=== PATIENT | female | born 1965 | race Caucasian/White ===

== ENCOUNTER 2017-12-19 10:01 | Emergency (ER) | payer OTHER ==
[2017-12-19 11:24] VITALS: BP 119/72
--- NOTE | 2017-12-19 11:25 | UC ---
Respiratory Complaint HPI - HPI Summary HPI Summary: 52 yo female presents with fatigue and productive cough since yesterday. This morning developed a headache. She took 600mg ibuprofen with no relief. She tells me that in the past she had issues with her sugar and developed PNA and was hospitalized - she is concerned she may have PNA again. She does not check her sugars daily, but says her last A1C was 2 months ago and was around 6.0. Currently denies fever, chills, sore throat, SOB, chest pain, abdominal pain, n/ v, dizziness. - History of Current Complaint Chief Complaint: UCRespiratory Stated Complaint: POSS PNEUMONIA Time Seen by Provider: 12/19/17 11:24 Hx Obtained From: Patient Hx Last Menstrual Period: 2 weeks ago Onset/Duration: Gradual Onset Severity Initially: Moderate Severity Currently: Moderate Pain Intensity: 8 Pain Scale Used: 0-10 Numeric Character: Cough: Productive - Allergies/Home Medications Allergies/Adverse Reactions: Allergies Allergy/AdvReac Type Severity Reaction Status Date / Time codeine Allergy See Comment Verified 12/19/17 11:13 promethazine [From Phenergan] Allergy See Comment Verified 12/19/17 11:13 Sulfa (Sulfonamide Allergy Headache Verified 12/19/17 11:13 Antibiotics) Home Medications: Home Medications Cyanocobalamin TAB* [Vitamin B12 TAB*] 1,000 mcg PO DAILY 12/19/17 [History Confirmed 12/19/17] Docusate CAP* [Colace Cap*] 100 mg PO DAILY 12/19/17 [History Confirmed 12/19/17 ] Ertugliflozin/Sitagliptin [Steglujan 15-100 mg Tablet] 1 each PO DAILY 12/19/17 [History Confirmed 12/19/17] Iron 18 mg PO BID 12/19/17 [History Confirmed 12/19/17] Lisinopril TAB* [Prinivil TAB*] 10 mg PO DAILY 12/19/17 [History Confirmed 12/19] Multivitamin [Multivitamins] 1 cap PO DAILY 12/19/17 [History Confirmed 12/19/17 ] Omeprazole CAP* [Prilosec CAP* 20 MG] 20 mg PO DAILY 12/19/17 [History Confirmed 12/19/17] PARoxetine HCL TAB* [Paxil TAB*] 20 mg PO DAILY 12/19/17 [History Confirmed ] Simvastatin TAB(NF) [Zocor(NF)] 20 mg PO DAILY 12/19/17 [History Confirmed 12/19] metFORMIN* [Glucophage 1000 MG TAB *] 1,000 mg PO BID 12/19/17 [History Confirmed 12/19/17] PMH/Surg Hx/FS Hx/Imm Hx Endocrine History: Diabetes, Dyslipidemia Cardiovascular History: Hypertension Psychological History: Anxiety, Depression - Surgical History Surgical History: Yes Surgery Procedure, Year, and Place: [facility] - Family History Known Family History: Positive: Diabetes - Social History Occupation: Employed Full-time Lives: With Family Alcohol Use: Rare Substance Use Type: None Smoking Status (MU): Current Some Day Smoker Type: Cigarettes Amount Used/How Often: rarely Review of Systems Constitutional: Fatigue Skin: Negative Eyes: Negative ENT: Negative Respiratory: Cough Cardiovascular: Negative Gastrointestinal: Negative Genitourinary: Negative Neurovascular: Negative Musculoskeletal: Negative Neurological: Headache Psychological: Negative All Other Systems Reviewed And Are Negative: Yes Physical Exam - Summary Physical Exam Summary: GENERAL: NAD. WDWN. No pain distress. SKIN: No rashes, sores, lesions, or open wounds. HEENT: Head: AT/NC Eyes: EOM intact. Conjunctiva clear without inflammation or discharge. Ears: Hearing grossly normal. TMs intact, no bulging, erythema, or edema. Nose: Nasal mucosa pink and moist. NTTP maxillary and frontal sinus. Throat: Posterior oropharynx without exudates, erythema, or tonsillar enlargement. Uvula midline. NECK: Supple. Nontender. No lymphadenopathy. CHEST: CTAB. No r/r/w. No accessory muscle use. Breathing comfortably and in no distress. CV: RRR. Without m/r/g. Pulses intact. Cap refill <2seconds NEURO: Alert. PSYCH: Age appropriate behavior. Triage Information Reviewed: Yes Vital Signs: Initial Vital Signs Temp 97.1 F 12/19/17 11:17 Pulse 84 12/19/17 11:17 Resp 18 12/19/17 11:17 BP 119/72 12/19/17 11:17 Pulse Ox 99 12/19/17 11:17 Laboratory Tests 12/19/17 11:32 POC Glucose (mg/dL) 138 H Vital Signs Reviewed: Yes UC Diagnostic Evaluation - Laboratory O2 Sat by Pulse Oximetry: 99 Respiratory Course/Dx - Course Course Of Treatment: CXR: IMPRESSION: 1. NO EVIDENCE FOR ACUTE FINDING. 2. SMALL BILATERAL PULMONARY NODULES FAVORING GRANULOMAS ALTHOUGH NONSPECIFIC. THESE CAN. BE FURTHER EVALUATED WITH A NONEMERGENT CT OF THE CHEST WITHOUT CONTRAST OR A FOLLOW-UP. CHEST X-RAY IN 6 MONTHS TIME TO DEMONSTRATE STABILITY. Glucose appears to be well controlled. Suspect viral illness. Advised to continue with ibuprofen, rest, and drink plenty of fluids. Discussed at length with pt the above CXR findings. She became tearful and worried that these may be cancerous. I encouraged her to call her PCP's office who may have past CXRs on file that can correlate these nodules as she goes to [facility] for most exams. - Differential Dx/Diagnosis Provider Diagnoses: Headache. Cough. DM2 Discharge - Sign-Out/Discharge Documenting (check all that apply): Patient Departure All imaging exams completed and their final reports reviewed: Yes - Discharge Plan Condition: Stable Disposition: HOME Patient Education Materials: Tension Headache (ED), Viral Syndrome (ED) Referrals: Skylar Boyce NP [Primary Care Provider] - Additional Instructions: If you develop a fever, shortness of breath, chest pain, new or worsening symptoms - please call your PCP or go to the ED. 1) Your fingerstick glucose was 138 and reflects great diabetes control. 2) Your CXR results were provided to you. Please follow up with your PCP for further imaging and monitoring in 6 months. - Billing Disposition and Condition Condition: STABLE Disposition: Home
--- NOTE | 2017-12-19 12:26 | RAD ---
INDICATION: Cough. COMPARISON: There are no relevant prior studies available for comparison. TECHNIQUE: Dual-energy PA and lateral views of the chest were obtained. FINDINGS: The heart is within normal limits in size. Mediastinal and hilar contours appear within normal limits. There are several small pulmonary nodules present within both lungs which appear mildly dense likely containing calcium favoring granulomas. The lungs are otherwise clear. No pleural effusion is seen. IMPRESSION: 1. NO EVIDENCE FOR ACUTE FINDING. 2. SMALL BILATERAL PULMONARY NODULES FAVORING GRANULOMAS ALTHOUGH NONSPECIFIC. THESE CAN BE FURTHER EVALUATED WITH A NONEMERGENT CT OF THE CHEST WITHOUT CONTRAST OR A FOLLOW-UP CHEST X-RAY IN 6 MONTHS TIME TO DEMONSTRATE STABILITY.
== END 2017-12-19 12:54 | disposition home or self-care (01) ==
LOC: UCCORT 10:01
DX: R05 Cough (principal); R51 Headache; R91.8 Other nonspecific abnormal finding of lung field; E11.9 Type 2 diabetes mellitus without complications; I10 Essential (primary) hypertension; F41.8 Other specified anxiety disorders; E78.5 Hyperlipidemia, unspecified; F17.210 Nicotine dependence, cigarettes, uncomplicated; Z79.899 Other long term (current) drug therapy; Z79.84 Long term (current) use of oral hypoglycemic drugs; Z87.01 Personal history of pneumonia (recurrent); Z88.8 Allergy status to other drugs, medicaments and biological substances; Z88.2 Allergy status to sulfonamides; Z88.5 Allergy status to narcotic agent
CPT/HCPCS: 71046; 99212; G0463

== ENCOUNTER 2017-12-23 14:36 | Emergency (ER) | payer OTHER ==
[2017-12-23 15:52] VITALS: BP 126/73
[2017-12-23] MEDS ORDERED: Amoxicillin PO (*) 500 MG CAP PO ONE (17:11)
--- NOTE | 2017-12-23 17:12 | UC ---
UC General HPI - HPI Summary HPI Summary: PT IS C/O A 3-4 DAYS HX OF A SORE TO HER R LOWER GUM. HX SAME THAT NEEDED AN ANTIBIOTIC. HX DM AND NOTES A SLIGHT INCREASE IN BS WITH THIS. - History of Current Complaint Chief Complaint: UCDentalProblem Stated Complaint: DENTAL COMPLAINT Time Seen by Provider: 12/23/17 17:04 Hx Obtained From: Patient Hx Last Menstrual Period: 2 weeks ago Onset/Duration: Gradual Onset Timing: Constant Pain Intensity: 4 Associated Signs & Symptoms: Negative: Fever - Allergy/Home Medications Allergies/Adverse Reactions: Allergies Allergy/AdvReac Type Severity Reaction Status Date / Time codeine Allergy See Comment Verified 12/23/17 15:49 promethazine [From Phenergan] Allergy See Comment Verified 12/23/17 15:49 Sulfa (Sulfonamide Allergy Headache Verified 12/23/17 15:49 Antibiotics) PMH/Surg Hx/FS Hx/Imm Hx Endocrine History: Diabetes - Surgical History Surgical History: Yes Surgery Procedure, Year, and Place: [facility]. [facility] - Family History Known Family History: Positive: Diabetes - Social History Occupation: Employed Full-time Alcohol Use: Rare Substance Use Type: None Smoking Status (MU): Current Some Day Smoker Type: Cigarettes Amount Used/How Often: rarely - Immunization History Vaccination Up to Date: Yes Review of Systems Constitutional: Negative Skin: Negative Eyes: Negative ENT: Other - PAIN/SWELLING r LOWER GUM Respiratory: Negative Cardiovascular: Negative Gastrointestinal: Negative Genitourinary: Negative Motor: Negative Neurovascular: Negative Musculoskeletal: Negative Neurological: Negative Psychological: Negative Is Patient Immunocompromised?: No All Other Systems Reviewed And Are Negative: Yes Physical Exam Triage Information Reviewed: Yes Appearance: Well-Appearing Vital Signs: Initial Vital Signs Temp 98 F 12/23/17 15:43 Pulse 85 12/23/17 15:43 Resp 15 12/23/17 15:43 BP 126/73 12/23/17 15:43 Pulse Ox 100 12/23/17 15:43 Vital Signs Reviewed: Yes Eyes: Positive: Conjunctiva Clear ENT: Positive: Pharynx normal, TMs normal. Negative: Nasal congestion, Nasal drainage Dental: Positive: Other: - SWELLING AND TENDERNESS R LOWER GUM BELOW THE CUSP BUT NOT FLUCTUANT Neck: Positive: Supple, Nontender, No Lymphadenopathy Respiratory: Positive: Lungs clear, Normal breath sounds Cardiovascular: Positive: RRR, No Murmur Abdomen Description: Positive: Nontender, No Organomegaly, Soft Bowel Sounds: Positive: Present Musculoskeletal: Positive: ROM Intact Neurological: Positive: Alert Psychological: Positive: Age Appropriate Behavior Skin Exam: Normal Course/Dx - Differential Dx - Multi-Symptom Provider Diagnoses: INFECTION R LOWER GUM Discharge - Sign-Out/Discharge Documenting (check all that apply): Patient Departure All imaging exams completed and their final reports reviewed: No Studies - Discharge Plan Condition: Stable Disposition: HOME Prescriptions: Amoxicillin PO (*) [Amoxicillin 875 MG (*)] 875 mg PO BID 10 Days #20 tab Patient Education Materials: Dental Abscess (ED) Referrals: Skylar Boyce NP [Primary Care Provider] - If Needed Additional Instructions: FOLLOW UP DR MCDONALD, YOUR DENTIST SOON POSSIBLE. DIAGNOSIS: INFECTION R LOWER GUM - Billing Disposition and Condition Condition: STABLE Disposition: Home
== END 2017-12-23 17:17 | disposition home or self-care (01) ==
LOC: UCCORT 14:36
DX: K05.10 Chronic gingivitis, plaque induced (principal); E11.9 Type 2 diabetes mellitus without complications; F17.200 Nicotine dependence, unspecified, uncomplicated; Z88.5 Allergy status to narcotic agent; Z88.8 Allergy status to other drugs, medicaments and biological substances; Z88.2 Allergy status to sulfonamides
CPT/HCPCS: 99212; A9270-GY; G0463

== ENCOUNTER 2018-02-26 15:20 | Emergency (ER) | payer OTHER ==
[2018-02-26 15:45] VITALS: BP 119/67
--- NOTE | 2018-02-26 16:02 | UC ---
UC General HPI - HPI Summary HPI Summary: sore throat and body aches since this am. No fever. - History of Current Complaint Chief Complaint: UCGeneralIllness Stated Complaint: ST,ACHY Hx Obtained From: Patient Hx Last Menstrual Period: 02/01/18 Onset/Duration: Gradual Onset Timing: Constant Pain Intensity: 8 - Allergy/Home Medications Allergies/Adverse Reactions: Allergies Allergy/AdvReac Type Severity Reaction Status Date / Time codeine Allergy See Comment Verified 02/26/18 15:41 promethazine [From Phenergan] Allergy See Comment Verified 02/26/18 15:41 Sulfa (Sulfonamide Allergy Headache Verified 02/26/18 15:41 Antibiotics) Home Medications: Home Medications Ibuprofen TAB* [Motrin TAB* 600 MG] 600 mg PO Q6H PRN 02/26/18 [History Confirmed 02/26/18] PMH/Surg Hx/FS Hx/Imm Hx Endocrine History: Diabetes Cardiovascular History: Hypertension - Surgical History Surgical History: Yes Surgery Procedure, Year, and Place: [facility]. [facility] - Family History Known Family History: Positive: Diabetes - Social History Occupation: Employed Full-time Alcohol Use: Rare Substance Use Type: None Smoking Status (MU): Never Smoked Tobacco Type: Cigarettes Amount Used/How Often: rarely - Immunization History Vaccination Up to Date: Yes Review of Systems All Other Systems Reviewed And Are Negative: Yes Constitutional: Positive: Negative Skin: Positive: Negative Eyes: Positive: Negative ENT: Positive: Sore Throat Respiratory: Positive: Negative Cardiovascular: Positive: Negative Gastrointestinal: Positive: Negative Genitourinary: Positive: Negative Motor: Positive: Negative Neurovascular: Positive: Negative Musculoskeletal: Positive: Myalgia Neurological: Positive: Negative Psychological: Positive: Negative Physical Exam Triage Information Reviewed: Yes Appearance: Well-Appearing Vital Signs: Initial Vital Signs Temp 98.8 F 02/26/18 15:40 Pulse 101 02/26/18 15:40 Resp 16 02/26/18 15:40 BP 119/67 02/26/18 15:40 Pulse Ox 99 02/26/18 15:40 Vital Signs Reviewed: Yes Eyes: Positive: Conjunctiva Clear ENT: Positive: Pharyngeal erythema, TMs normal, Uvula midline. Negative: Nasal congestion, Nasal drainage, Trismus, Muffled voice, Hoarse voice Neck: Positive: Supple, Tenderness @ - peritonsilar nodes with mild enlargement. Respiratory: Positive: Lungs clear, Normal breath sounds Cardiovascular: Positive: RRR, No Murmur Abdomen Description: Positive: Nontender, No Organomegaly, Soft Bowel Sounds: Positive: Present Musculoskeletal: Positive: ROM Intact Neurological: Positive: Alert Psychological: Positive: Age Appropriate Behavior Skin Exam: Normal Diagnostics - Laboratory Diagnostic Studies Completed/Ordered: rapid strep=positive Course/Dx - Diagnoses Provider Diagnosis: Strep throat Discharge - Sign-Out/Discharge Documenting (check all that apply): Patient Departure All imaging exams completed and their final reports reviewed: No Studies - Discharge Plan Condition: Stable Disposition: HOME Prescriptions: Amoxicillin PO (*) [Amoxicillin 500 MG CAP*] 500 mg PO Q12H 10 Days #20 cap Fluconazole 150 MG TAB* [Diflucan 150 MG TAB*] 150 mg PO UC ONCE #1 tablet Patient Education Materials: Strep Throat (ED) Referrals: Skylar Boyce NP [Primary Care Provider] - Additional Instructions: FOLLOW UP WITH PRIMARY CARE IF NOT BETTER IN 7 DAYS OR SOONER IF WORSE. - Billing Disposition and Condition Condition: STABLE Disposition: Home
== END 2018-02-26 16:07 | disposition home or self-care (01) ==
LOC: UCCORT 15:20
DX: J02.0 Streptococcal pharyngitis (principal); B95.0 Streptococcus, group A, as the cause of diseases classified elsewhere; Z88.5 Allergy status to narcotic agent; Z88.2 Allergy status to sulfonamides; Z88.8 Allergy status to other drugs, medicaments and biological substances; E11.9 Type 2 diabetes mellitus without complications; I10 Essential (primary) hypertension
CPT/HCPCS: 87651; 99212; G0463

== ENCOUNTER 2018-07-07 18:49 | Emergency (ER) | payer OTHER ==
[2018-07-07 19:17] VITALS: BP 123/66
--- NOTE | 2018-07-07 19:52 | UC ---
Throat Pain/Nasal [place] HPI - HPI Summary HPI Summary: Sore throat over the past 6 days with mild cough at night. No history of allergies. - History of Current Complaint Chief Complaint: UCGeneralIllness Stated Complaint: THROAT COMPLAINT Time Seen by Provider: 07/07/18 19:41 Hx Obtained From: Patient Hx Last Menstrual Period: 02/01/18 ?: No Onset/Duration: Gradual Onset Severity: Mild Pain Intensity: 5 Cough: None Associated Signs & Symptoms: Positive: Negative - Allergies/Home Medications Allergies/Adverse Reactions: Allergies Allergy/AdvReac Type Severity Reaction Status Date / Time codeine Allergy See Comment Verified 07/07/18 19:09 promethazine [From Phenergan] Allergy See Comment Verified 07/07/18 19:09 Sulfa (Sulfonamide Allergy Headache Verified 07/07/18 19:09 Antibiotics) Home Medications: Home Medications L.acidoph,Paracasei, B.lactis [Probiotic] 1 each PO BEDTIME 07/07/18 [History Confirmed 07/07/18] PMH/Surg Hx/FS Hx/Imm Hx Previously Healthy: Yes Endocrine History: Diabetes Cardiovascular History: Hypertension - Surgical History Surgical History: Yes Surgery Procedure, Year, and Place: [facility] - Family History Known Family History: Positive: Diabetes - Social History Alcohol Use: Rare Substance Use Type: None Smoking Status (MU): Never Smoked Tobacco Type: Cigarettes Amount Used/How Often: rarely - Immunization History Vaccination Up to Date: Yes Review of Systems All Other Systems Reviewed And Are Negative: Yes ENT: Positive: Sore Throat, Sinus Congestion Is Patient Immunocompromised?: No Physical Exam Triage Information Reviewed: Yes Appearance: Well-Appearing, No Pain Distress, Well-Nourished Vital Signs: Initial Vital Signs Temp 97.6 F 07/07/18 19:13 Pulse 93 07/07/18 19:13 Resp 22 07/07/18 19:13 BP 123/66 07/07/18 19:13 Pulse Ox 99 07/07/18 19:13 Vital Signs Reviewed: Yes Eye Exam: Normal ENT: Positive: Hearing grossly normal, Pharynx normal, Nasal congestion - Mildly swollen turbinates., TMs normal, Uvula midline Neck exam: Normal Neck: Positive: Supple, Nontender, No Lymphadenopathy Respiratory: Positive: Lungs clear, Normal breath sounds, No respiratory distress, No accessory muscle use Cardiovascular: Positive: RRR, No Murmur, Pulses Normal, Brisk Capillary Refill Musculoskeletal Exam: Normal Neurological Exam: Normal Psychological Exam: Normal Skin Exam: Normal Throat Pain/Nasal Course/Dx - Course Course Of Treatment: Although the patient does not have a history of seasonal allergies she is going to try Claritin 10 mg by mouth daily for one week and then Flonase 2 sprays in each nostril daily for one week and then dropped that down to 1 spray in each nostril. She is to follow-up with primary care provider if no improvement in 3 or 4 days. Rapid strep test was negative - Differential Dx/Diagnosis Provider Diagnosis: Allergic rhinitis Discharge - Sign-Out/Discharge Documenting (check all that apply): Patient Departure All imaging exams completed and their final reports reviewed: No Studies - Discharge Plan Condition: Fair Disposition: HOME Prescriptions: Fluticasone NASAL SPRAY 50MCG* [Flonase NASAL SPRAY 50MCG*] 2 spray BOTH NARES DAILY 7 Days #1 btl Patient Education Materials: Allergic Rhinitis (DC) Referrals: Skylar Boyce NP [Primary Care Provider] - Additional Instructions: Try taking Claritin 10 mg daily and Flonase 2 sprays in each nostril once a day for a week and then decrease to 1 spray in each nostril once a day. Follow-up with your primary care provider if no improvement in 4 or 5 days. - Billing Disposition and Condition Condition: FAIR Disposition: Home - Attestation Statements Provider Attestation: Per institutional requirements, I have reviewed the chart, however, I was not consulted specifically or made aware of this patient by the midlevel provider. I did not personally evaluate, interact with , or disposition this patient.
== END 2018-07-07 19:55 | disposition home or self-care (01) ==
LOC: UCCORT 18:49
DX: J30.9 Allergic rhinitis, unspecified (principal); E11.9 Type 2 diabetes mellitus without complications; I10 Essential (primary) hypertension; Z88.5 Allergy status to narcotic agent; Z88.2 Allergy status to sulfonamides; Z88.8 Allergy status to other drugs, medicaments and biological substances
CPT/HCPCS: 87651; 99212; G0463

== ENCOUNTER 2018-07-09 17:48 | Emergency (ER) | payer OTHER ==
[2018-07-09 18:24] VITALS: BP 116/74
--- NOTE | 2018-07-09 18:41 | UC ---
Throat Pain/Nasal [place] HPI - HPI Summary HPI Summary: 53 yo diabetic with 8 days of sore throat requiring use of analgesics. Seen on , advised loratidine and flonase spray. Has been following this without relief. ]Took ibuprofen 800mg at 15:00, with modest reduction of pain. Has occasional cough. Able to swallow. Hx of reflux, controlled with omeprazole, no recent increase in symptoms. - History of Current Complaint Chief Complaint: UCGeneralIllness Stated Complaint: ST Time Seen by Provider: 07/09/18 18:37 Hx Obtained From: Patient Hx Last Menstrual Period: 02/01/18 Onset/Duration: Gradual Onset, Lasting Days Severity: Moderate Pain Intensity: 3 Cough: Nonproductive Associated Signs & Symptoms: Positive: Dysphagia - Epiglottits Risk Factors Epiglottis Risk Factors: Negative - Allergies/Home Medications Allergies/Adverse Reactions: Allergies Allergy/AdvReac Type Severity Reaction Status Date / Time codeine Allergy See Comment Verified 07/09/18 18:24 promethazine [From Phenergan] Allergy See Comment Verified 07/09/18 18:24 Sulfa (Sulfonamide Allergy Headache Verified 07/09/18 18:24 Antibiotics) PMH/Surg Hx/FS Hx/Imm Hx Endocrine History: Diabetes GI/ History: Gastroesophageal Reflux Psychological History: Depression - Surgical History Surgical History: Yes Surgery Procedure, Year, and Place: [facility] - Family History Known Family History: Positive: Cardiac Disease - father has CHF, Diabetes - Social History Occupation: Employed Full-time Lives: With Family Alcohol Use: Rare Substance Use Type: None Smoking Status (MU): Never Smoked Tobacco Type: Cigarettes Amount Used/How Often: rarely - Immunization History Vaccination Up to Date: Yes Review of Systems All Other Systems Reviewed And Are Negative: Yes Constitutional: Positive: Negative Skin: Positive: Negative Eyes: Positive: Negative ENT: Positive: Sore Throat Respiratory: Positive: Cough Cardiovascular: Positive: Negative Gastrointestinal: Positive: Other - hx of reflux, states controlled. Motor: Positive: Negative Neurovascular: Positive: Negative Musculoskeletal: Positive: Negative Neurological: Positive: Negative. Negative: Headache Psychological: Positive: Negative Physical Exam Triage Information Reviewed: Yes Appearance: Well-Appearing, Pain Distress - mild Vital Signs: Initial Vital Signs Temp 97 F 07/09/18 18:22 Pulse 88 07/09/18 18:22 Resp 16 07/09/18 18:22 BP 116/74 07/09/18 18:22 Pulse Ox 97 07/09/18 18:22 Eyes: Positive: Conjunctiva Clear ENT: Positive: Pharyngeal erythema, TMs normal. Negative: Tonsillar swelling, Tonsillar exudate - mildly red. Neck: Positive: Supple, Nontender, No Lymphadenopathy Respiratory: Positive: Lungs clear, Normal breath sounds Cardiovascular: Positive: RRR, No Murmur Musculoskeletal Exam: Normal Neurological: Positive: Alert, Muscle Tone Normal Psychological Exam: Normal Skin Exam: Normal Diagnostics - Laboratory Lab Results: rapid strep negative Throat Pain/Nasal Course/Dx - Course Course Of Treatment: continue analgesics, symptomatic treatment. - Differential Dx/Diagnosis Differential Diagnosis/HQI/PQRI: Pharyngitis, Tonsillitis, URI Provider Diagnosis: Viral pharyngitis Discharge - Sign-Out/Discharge Documenting (check all that apply): Patient Departure All imaging exams completed and their final reports reviewed: No Studies - Discharge Plan Condition: Good Disposition: HOME Patient Education Materials: Pharyngitis (ED) Referrals: Skylar Boyce NP [Primary Care Provider] - Additional Instructions: There are no clinical findings to suggest bacterial illness. Continue use of ibuprofen for pain control, add warm water and salt gargling to try to ease the discomfort. Follow up with your primary doctor if symptoms continue. - Billing Disposition and Condition Condition: GOOD Disposition: Home
== END 2018-07-09 19:03 | disposition home or self-care (01) ==
LOC: UCCORT 17:48
DX: J02.9 Acute pharyngitis, unspecified (principal); E11.9 Type 2 diabetes mellitus without complications; K21.9 Gastro-esophageal reflux disease without esophagitis; Z88.5 Allergy status to narcotic agent; Z88.2 Allergy status to sulfonamides; Z88.8 Allergy status to other drugs, medicaments and biological substances; Z79.899 Other long term (current) drug therapy
CPT/HCPCS: 87651; 99211; G0463

== ENCOUNTER 2019-03-20 16:33 | Emergency (ER) | payer BC, OTHER ==
--- OUTSIDE RECORDS SUMMARY | 2019-03-20 16:41 | XMS REPORT | Continuity of Care Document ---
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 Onset: 04/25/2012 Pure hypercholesterolemia Lashawn Hough NP Onset: 10/30/2010 Other specified inflammation of vagina Anne Aguilar MD Onset: 02/03/2015 and vulva Anxiety state Luis Boyce FNP Onset: 06/27/2015 Headache Luis Boyce FNP Onset: 06/27/2015 Allergic reaction Onset: 10/05/2015 Social History Type Date Description Comments Sex Unknown Tobacco Use Start: Unknown End: Former Cigarette Smoker x 20 yrs. Quit 3 Unknown yrs ago Smokeless Tobacco Never Used Smokeless Tobacco ETOH Use Rarely consumes alcohol Tobacco Use Start: Unknown End: Patient is a former Quit 2008 Unknown smoker Recreational Drug Use Never Used Drugs Smoking Status Reviewed: 02/22/19 Patient is a former Quit 2009 smoker Exercise Type/Frequency Exercises regularly 3 to 4 days a week Allergies, Adverse Reactions, Alerts Active Allergies Reaction Severity Comments Date Codeine 09/04/2012 Phenergan 09/04/2012 Sulfa Antibiotics 09/04/2012 Inactive Allergies Compazine 09/04/2012 Medications Active Medications SIG Qnty Indications Ordering Date Provider Colace 1 by mouth 60caps Susana Lindo, 02/22/2019 100mg Capsules daily and can PNP-BC, ANALYTICAL CLERK, take twice a [facility] day as needed Fluorometholone please apply 1 5ml H10.013 Betito Jacob MD 01/25/2019 0.1% drop to both Suspension eyes 3 times daily for 1 week Invokana 1 tab by mouth 30tabs Susana Lindo, 11/27/2018 100mg Tablets every morning PNP-BC, ANALYTICAL CLERK, [facility] Metformin HCL take 1 tablet 60tabs Susana Lindo, 11/02/2018 500mg Tablets by mouth in the PNP-BC, ANALYTICAL CLERK, am and 2 at [facility] night Ferrous Gluconate Take 1 Tablet 60tabs D50.9 [place], 09/28/2017 324(38Fe) By Mouth Twice Jenniferleigh, mg Tablets Daily ANALYTICAL CLERK G25.81 Steglatro Take 1 Tablet By 90tabs E11.65 Luis Boyce, 09/16/2017 15mg Mouth Once Daily ANALYTICAL CLERK Tablets Omeprazole Take 1 Capsule 30caps R12 Luis Boyce, 06/10/2016 20mg By Mouth Once ANALYTICAL CLERK Capsules DR Daily Freestyle Lite Test use twice daily 100units E11.65 Luis Boyce, 05/14/2016 to test blood ANALYTICAL CLERK Strips sugars dx: e11.65 Alcohol Pads use as needed 100units E11.65 Luis Boyce, 2016 70% Pads with checking ANALYTICAL CLERK sugars Dx: E11.65 Freestyle Lancets use once daily 100units E11.65 Luis Boyce, and as needed ANALYTICAL CLERK [facility] for diabetes / blood sugar testing dx: e11.65 Freestyle Test Once A Day 50units E11.65 Luis Boyce, 05/14/2016 ANALYTICAL CLERK Paroxetine HCL ER Take 1 Tablet By 30tabs F41.9 Luis Boyce, Mouth Once Daily ANALYTICAL CLERK 25mg Tablets ER 24HR Freestyle Lite Test test glu 1x/day 150units Luis Boyce, 2015 dx: e11.65 ANALYTICAL CLERK Strips Multi-Vitamin 1 by mouth every Tita Rogers MD 03/13/2014 day Tablets Vitamin B-12 1 by mouth every Unknown Natural day 1000mcg Tablets Probiotic 1 by mouth every Unknown Capsules day Lisinopril Take 1 Tablet By 30tabs Luis Boyce, 10mg Mouth Once Daily ANALYTICAL CLERK Tablets Simvastatin Take 1 Tablet By 90tabs Luis Boyce, 20mg Mouth Once Daily ANALYTICAL CLERK Tablets Immunizations CPT Code Status Date Vaccine Lot # [id number] Given 05/17/2018 Tdap injection [id number] Refused 03/15/2012 flu vaccination Vital Signs Date Vital Result Comment 02/22/2019 11:02am BP Systolic 128 mmHg BP Diastolic 82 mmHg Body Temperature 97.8 F Heart Rate 98 /min Respiratory Rate 18 /min Height 61 inches 5'1" Weight 200.00 lb BMI (Body Mass Index) 37.8 kg/m2 BSA (Body Surface Area) 1.89 m2 [place] body weight in kilograms 48 kg 11/02/2018 1:55pm BP Systolic 138 mmHg BP Diastolic 78 mmHg Body Temperature 97.7 F Heart Rate 100 /min Respiratory Rate 16 /min Height 61 inches 5'1" Weight 198.00 lb BMI (Body Mass Index) 37.4 kg/m2 BSA (Body Surface Area) 1.88 m2 [place] body weight in kilograms 48 kg Results Test Acquired Date Facility Test Result H/L Range Note Laboratory test 10/13/2018 [facility] Hemoglobin A1c 6.9 % High 4.0-5.6 1, 2 finding [phone] (Glyco HGB) 1 N/S August appt - none scheduled 2 Therapeutic target for the treatment of diabetes mellitus patients is <7% HBA1C, and in selective patients <6.0%. Please refer to [place] [employer] diabetic care guidelines for further information. Procedures Date Code Description Status 02/22/2019 55569 Brief Emotional/Behav Assessment W/ Scoring Doc Per Completed Standard Inst 01/25/2019 86075 Eye Exam Est Patient Comprehensive Completed 05/25/2018 [id number] Mammogram Completed 05/09/2018 [id number] Diabetic Foot Exam Completed 07/12/2016 [id number] Colonoscopy Completed Medical Devices Description No Information Available Encounters Type Date Location Provider Dx Diagnosis Office Visit 11/02/2018 Family Medicine Susana Lindo, E11.9 Type 2 diabetes 2:[address] PNP-BC, ANALYTICAL CLERK, mellitus without [facility] complications Assessments Date Code Description Provider 02/22/2019 E11.9 Type 2 diabetes mellitus without Susana Lindo, PNP-BC, ANALYTICAL CLERK , complications [facility] 02/22/2019 F33.1 Major depressive disorder, Susana Lindo, PNP-BC, ANALYTICAL CLERK, recurrent, moderate [facility] 02/22/2019 R14.0 Abdominal distension (gaseous) Susana Lindo, PNP-BC, ANALYTICAL CLERK, Ibcl[facility] 01/25/2019 H10.013 Acute follicular conjunctivitis, Betito Jacob MD bilateral 01/15/2019 E11.9 Type 2 diabetes mellitus without Guicho, Susana, PNP-BC, ANALYTICAL CLERK , complications [facility]cl[facility] 11/02/2018 E11.9 Type 2 diabetes mellitus without Guicho, Susana, PNP-BC, ANALYTICAL CLERK , complications [facility]cl[facility] Plan of Treatment 02/22/2019 - Susana Lindo, PNP-BC, ANALYTICAL CLERK, JjljvO13.9 Type 2 diabetes mellitus without complicationsNew Labs:Glycohemoglobin A1c, Ordered: 02/22/19Comments:we' ll call you with your lab results.Follow up:3 htztpzD97.1 Major depressive disorder, recurrent, moderateNew Labs:Estrogen,Total, Ordered: Progesterone, Ordered: 02/22/19TSH Reflex FT4 And/Or FT3, Ordered: Comments:if your labs look ok then we'll increase your paroxetine and see if that helps.R14.0 Abdominal distension (gaseous)New Labs:Comprehensive Metabolic Panel, Ordered: 02/22/19H Pylori,Igm,Igg,Iga Antibodies, Ordered: Comments:definitely try the rob seltzer and see if that helps.AllNew Medication:Colace 100 mg - 1 by mouth daily and can take twice a day as needed Functional Status Functional Condition Comment Date Status Glasses Active Mental Status Description No Information Available Referrals Description No Information Available
--- OUTSIDE RECORDS SUMMARY | 2019-03-20 16:41 | XMS REPORT | Continuity of Care Document ---
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 OPERATOR Onset: 10/30/2010 Other specified inflammation of vagina [...] Use Never Used Drugs Smoking Status Reviewed: 01/25/19 Patient is a former Quit 2009 smoker Exercise Type/Frequency Exercises regularly 3 to 4 days a week Allergies, Adverse Reactions, Alerts Active Allergies Reaction Severity Comments Date Codeine 09/04/2012 Phenergan 09/04/2012 Sulfa Antibiotics 09/04/2012 Inactive Allergies Compazine 09/04/2012 Medications Active Medications SIG Qnty Indications Ordering Date Provider Fluorometholone please apply 1 5ml H10.013 Betito Jacob MD 01/25/2019 0.1% drop to both Suspension eyes 3 times daily for 1 week Invokana 1 tab by mouth 30tabs Susana Lindo, 11/27/2018 100mg Tablets every morning PNP-BC, CONSULTING DATABASE ADMINISTRATOR, Ibcl[facility] Metformin HCL take 1 tablet 60tabs Susana Lindo, 11/02/2018 500mg Tablets by mouth twice PNP-BC, CONSULTING DATABASE ADMINISTRATOR, a day Ibcl[facility] Ferrous Gluconate Take 1 Tablet 60tabs D50.9 [place], 09/28/2017 324(38Fe) By Mouth Twice Luis, mg Tablets Daily CONSULTING DATABASE ADMINISTRATOR G25.81 Steglatro Take 1 Tablet By 90tabs E11.65 Luis Boyce, 09/16/2017 15mg Mouth Once Daily CONSULTING DATABASE ADMINISTRATOR Tablets Omeprazole Take 1 Capsule 30caps R12 Luis Boyce, 06/10/2016 20mg By Mouth Once CONSULTING DATABASE ADMINISTRATOR Capsules DR Daily Freestyle Lite Test use twice daily 100units E11.65 Luis Boyce, 05/14/2016 to test blood CONSULTING DATABASE ADMINISTRATOR Strips sugars dx: e11.65 Alcohol Pads use as needed 100units E11.65 Luis Boyce, 2016 70% Pads with checking CONSULTING DATABASE ADMINISTRATOR sugars Dx: E11.65 Freestyle Lancets use once daily 100units E11.65 Luis Boyce, and as needed CONSULTING DATABASE ADMINISTRATOR [facility] dx: e11.65 Freestyle Test Once A Day 50units E11.65 Luis Boyce, 05/14/2016 CONSULTING DATABASE ADMINISTRATOR Paroxetine HCL ER Take 1 Tablet By 30tabs F41.9 Luis Boyce, Mouth Once Daily CONSULTING DATABASE ADMINISTRATOR 25mg Tablets ER 24HR Freestyle Lite Test test glu 1x/day 150units Luis Boyce, 2015 dx: e11.65 CONSULTING DATABASE ADMINISTRATOR Strips Multi-Vitamin 1 by mouth every Tita Rogers MD 03/13/2014 day Tablets Vitamin B-12 1 by mouth every Unknown Natural day 1000mcg Tablets Probiotic 1 by mouth every Unknown Capsules day Lisinopril Take 1 Tablet By 30tabs Luis Boyce, 10mg Mouth Once Daily CONSULTING DATABASE ADMINISTRATOR Tablets Simvastatin Take 1 Tablet By 90taLuis Pastrana, 20mg Mouth Once Daily CONSULTING DATABASE ADMINISTRATOR Tablets Tobramycin Instill 1 Drop Unknown 0.3% Into Affected Solution Eye Every 4 6 Hours For 7 Days Immunizations CPT Code Status Date Vaccine Lot # [id number] Given 05/17/2018 Tdap injection [id number] Refused 03/15/2012 flu vaccination Vital Signs Date Vital Result Comment 11/02/2018 1:55pm BP Systolic 138 mmHg BP Diastolic 78 mmHg Body Temperature 97.7 F Heart Rate 100 /min Respiratory Rate 16 /min Height 61 inches 5'1" Weight 198.00 lb BMI (Body Mass Index) 37.4 kg/m2 BSA (Body Surface Area) 1.88 m2 [place] body weight in kilograms 48 kg 05/09/2018 9:19am BP Systolic Sitting Left Arm 112 mmHg BP Diastolic Sitting Left Arm 76 mmHg Heart Rate 80 /min Respiratory Rate 18 /min Height 61 inches 5'1" Weight 198.00 lb BMI (Body Mass Index) 37.4 kg/m2 BSA (Body Surface Area) 1.88 m2 [place] body weight in kilograms 48 kg Results Test Acquired Date Facility Test Result H/L Range Note Laboratory test 10/13/2018 [facility] Hemoglobin A1c 6.9 % High 4.0-5.6 1, 2 finding [phone] (Glyco HGB) 1 N/S August appt - none scheduled 2 Therapeutic target for the treatment of diabetes mellitus patients is <7% HBA1C, and in selective patients <6.0%. Please refer to [place] [employer] diabetic care guidelines for further information. Procedures Date Code Description Status 01/25/2019 52825 Eye Exam Est Patient Comprehensive Completed 05/25/2018 [id number] Mammogram Completed 05/09/2018 [id number] Diabetic Foot Exam Completed 07/12/2016 [id number] Colonoscopy Completed Medical Devices Description No Information Available Encounters Type Date Location Provider Dx Diagnosis Office Visit 11/02/2018 Family Medicine Susana Lindo, E11.9 Type 2 diabetes 2:[address] PNP-BC, CONSULTING DATABASE ADMINISTRATOR, mellitus without Ibclc complications Assessments Date Code Description Provider 01/25/2019 H10.013 Acute follicular conjunctivitis, Betito Jacob MD bilateral 01/15/2019 E11.9 Type 2 diabetes mellitus without Susana Lindo PNP-BC, CONSULTING DATABASE ADMINISTRATOR , complications Ibclc 11/02/2018 E11.9 Type 2 diabetes mellitus without Susana Lindo PNP-BC, CONSULTING DATABASE ADMINISTRATOR , complications Ibclc Plan of Treatment No Information Available Functional Status Functional Condition Comment Date Status Glasses Active Mental Status Description No Information Available Referrals Description No Information Available
[2019-03-20 17:08] VITALS: BP 120/81
--- NOTE | 2019-03-20 17:57 | UC ---
Respiratory Complaint HPI - HPI Summary HPI Summary: 53 yo female with the onset of nasal congestion/cough/myalgias/sinus pressure all of which started yesterday had flu shot has DM - History of Current Complaint Chief Complaint: UCGeneralIllness Stated Complaint: HEADACHE, BODY ACHES, CONGESTION Time Seen by Provider: 03/20/19 17:51 Hx Obtained From: Patient Hx Last Menstrual Period: 01/25/19 Onset/Duration: Gradual Onset, Lasting Days Timing: Constant Severity Initially: Mild Severity Currently: Moderate Pain Intensity: 0 Pain Scale Used: 0-10 Numeric Character: Cough: Nonproductive Aggravating Factors: Nothing Alleviating Factors: Nothing Associated Signs And Symptoms: Positive: Nasal Congestion, Hoarseness, Sinus Discomfort - Allergies/Home Medications Allergies/Adverse Reactions: Allergies Allergy/AdvReac Type Severity Reaction Status Date / Time codeine Allergy See Comment Verified 03/20/19 17:01 promethazine [From Phenergan] Allergy See Comment Verified 03/20/19 17:01 Sulfa (Sulfonamide Allergy Headache Verified 03/20/19 17:01 Antibiotics) Home Medications: Home Medications Canagliflozin (NF) [Invokana (NF)] 1 tab PO DAILY 03/20/19 [History Confirmed ] PMH/Surg Hx/FS Hx/Imm Hx Previously Healthy: Yes Endocrine History: Diabetes, Dyslipidemia Cardiovascular History: Hypertension - Surgical History Surgical History: Yes Surgery Procedure, Year, and Place: cholecystectomy. appendectomy - Family History Known Family History: Positive: Cardiac Disease - father has CHF, Diabetes, Respiratory Disease - Social History Alcohol Use: Rare Substance Use Type: None Smoking Status (MU): Former Smoker Type: Cigarettes Amount Used/How Often: rarely When Did the Patient Quit Smoking/Using Tobacco: 2009 - Immunization History Vaccination Up to Date: Yes Review of Systems All Other Systems Reviewed And Are Negative: Yes Constitutional: Positive: Fever - tobin Skin: Positive: Negative Eyes: Positive: Negative ENT: Positive: Nasal Discharge, Sinus Congestion, Sinus Pain/Tenderness Respiratory: Positive: Cough Cardiovascular: Positive: Negative Gastrointestinal: Positive: Negative Genitourinary: Positive: Negative Motor: Positive: Negative Neurovascular: Positive: Negative Musculoskeletal: Positive: Negative Neurological: Positive: Negative Psychological: Positive: Negative Physical Exam Vital Signs: Initial Vital Signs Temp 97.2 F 03/20/19 17:03 Pulse 108 03/20/19 17:03 Resp 15 03/20/19 17:03 BP 120/81 03/20/19 17:03 Pulse Ox 99 03/20/19 17:03 Diagnostics - Laboratory Lab Results: influenza A (+) Respiratory Course/Dx - Differential Dx/Diagnosis Provider Diagnosis: Influenza A Discharge ED - Sign-Out/Discharge Documenting (check all that apply): Patient Departure All imaging exams completed and their final reports reviewed: No Studies - Discharge Plan Condition: Stable Disposition: HOME Prescriptions: Oseltamivir CAP* [Tamiflu CAP*] 75 mg PO BID #10 cap Patient Education Materials: Influenza (ED) Forms: *Work Release Referrals: Susana Lindo NP [Primary Care Provider] - If Needed Additional Instructions: rest fluids tylenol or advil - Billing Disposition and Condition Condition: STABLE Disposition: Home
[2019-03-21 10:28] LABS: Influenza A Molecular POSITIVE (Negative)
== END 2019-03-20 18:21 | disposition home or self-care (01) ==
LOC: UCCORT 16:33
DX: J10.1 Influenza due to other identified influenza virus with other respiratory manifestations (principal); E11.9 Type 2 diabetes mellitus without complications; I10 Essential (primary) hypertension; Z88.5 Allergy status to narcotic agent; Z88.2 Allergy status to sulfonamides; Z87.891 Personal history of nicotine dependence; Z79.84 Long term (current) use of oral hypoglycemic drugs
CPT/HCPCS: 99212; G0463